=== PATIENT | female | born 1975 | race Caucasian/White ===

== ENCOUNTER → 2016-09-17 | Outpatient (CLI) | payer OTHER ==
[~2016-09-17] MED LIST: ALBUTEROL0.83 MG/ML IH; ATIVAN0.5 MG PO; MIRALAX17 GM/DOSE PO; SYNTHROID0.05 MG PO; SYNTHROID0.05 MG/TA PO
== END ==
LOC: MC.RAD 07:00
DX: Z12.31 Encounter for screening mammogram for malignant neoplasm of breast (principal)

== ENCOUNTER → 2020-11-07 | Outpatient (CLI) | payer BC | LOC: MC.RAD 07:45 | DX: Z12.31 Encounter for screening mammogram for malignant neoplasm of breast (principal) ==

== ENCOUNTER → 2021-07-16 | Outpatient (CLI) | payer BC | LOC: COL.RAD 10:18 | DX: G35 Multiple sclerosis (principal); E53.8 Deficiency of other specified B group vitamins; E55.9 Vitamin D deficiency, unspecified; F41.9 Anxiety disorder, unspecified; M48.061 Spinal stenosis, lumbar region without neurogenic claudication; M51.26 Other intervertebral disc displacement, lumbar region ==

== ENCOUNTER → 2021-12-25 | Outpatient (CLI) | payer BC | LOC: COL.RAD 07:53 | DX: Z85.72 Personal history of non-Hodgkin lymphomas (principal) | CPT/HCPCS: Q9967 ==

== ENCOUNTER 2022-01-29 08:19 | Inpatient (IN) | payer BC ==
[2022-01-29] VITALS (25 sets, daily range): BP systolic 106–135; BP diastolic 55–80; PULSE 85–107; TEMP 97.7–98.4
[~2022-01-29] VITALS: Ht 162.6 cm; Wt 65.9 kg
[~2022-01-29 08:19] MED LIST changes: +BUSPAR5 MG PO; +MAG-OX 400400 MG/TAB PO; +MASON NATURAL2000 IU PO; +PRILOSEC 20MG20 MG PO; +SYMMETREL100 MG PO; -SYNTHROID0.05 MG PO; +SYNTHROID0.088 MG/T PO; +VYVANSE40 MG PO
[2022-01-30] VITALS (7 sets, daily range): BP systolic 95–121; BP diastolic 56–62; PULSE 65–100; TEMP 97.4–98.8
[2022-01-31 04:11] VITALS: BP 101/60; PULSE 98; TEMP 98.3
[2022-01-31 08:00] VITALS: BP 95/53; PULSE 94; TEMP 98
[2022-01-31 12:00] VITALS: BP 107/58; PULSE 98; TEMP 97.8
== END 2022-01-31 13:14 | disposition home or self-care (01) | DRG 181 ==
LOC: COL.RAD 08:19 → SURG 16:00
PROVIDERS: ADMIT Internal Medicine
PROC: 0W9930Z Drainage of Right Pleural Cavity with Drainage Device, Percutaneous Approach (ICD-10-PCS; principal; 2022-01-29)
PROC: 0BBK3ZX Excision of Right Lung, Percutaneous Approach, Diagnostic (ICD-10-PCS; 2022-01-29)
DX: C34.91 Malignant neoplasm of unspecified part of right bronchus or lung (principal); J95.811 Postprocedural pneumothorax; K21.9 Gastro-esophageal reflux disease without esophagitis; F41.9 Anxiety disorder, unspecified; F90.9 Attention-deficit hyperactivity disorder, unspecified type; E03.9 Hypothyroidism, unspecified; Y83.8 Other surgical procedures as the cause of abnormal reaction of the patient, or of later complication, without mention of misadventure at the time of the procedure; Z72.89 Other problems related to lifestyle; Z79.890 Hormone replacement therapy
CPT/HCPCS: J2270; J3010

== ENCOUNTER 2022-04-14 09:40 | Emergency (ER) | payer BC ==
[~2022-04-14] VITALS: Ht 162.6 cm; Wt 66.8 kg
[2022-04-14 09:50] VITALS: TEMP 97.2
[2022-04-14 11:24] VITALS: BP 112/64
[2022-04-14] MEDS ORDERED: PERCOCET 325 MG1 TA2 PO (11:30)
[2022-04-14 11:38] VITALS: PULSE 96
== END 2022-04-14 11:45 | disposition home or self-care (01) ==
LOC: COL.ER 09:40
DX: R07.89 Other chest pain (principal); Z48.813 Encounter for surgical aftercare following surgery on the respiratory system; Z20.822 Contact with and (suspected) exposure to COVID-19; Z28.310 Unvaccinated for COVID-19

== ENCOUNTER → 2023-05-23 | Outpatient (CLI) | payer BC ==
[~2023-05-23] MED LIST changes: +PERCOCET 325 MG1 TA2 PO
== END ==
LOC: CANSCHCLI → MC.RAD 07:15 → COL.RAD 07:15 → MC.RAD 07:16 → COL.RAD 07:16
DX: Z12.31 Encounter for screening mammogram for malignant neoplasm of breast (principal)